=== PATIENT | male | born 2000 | race Caucasian/White ===

== ENCOUNTER 2020-10-29 12:44 | Emergency (ER) | payer OTHER ==
[~2020-10-29] VITALS: Ht 167.6 cm; Wt 79.4 kg
[2020-10-29 12:45] VITALS: BP 157/96
[2020-10-29] MEDS ORDERED: MEDR4PAK PO (12:52)
[2020-10-29] MEDS ORDERED: IBUP-1022 PO (13:35)
[2020-10-29] MEDS ORDERED: SOMA350T PO (13:35)
== END 2020-10-29 13:44 | disposition home or self-care (01) ==
LOC: M ED 12:44
DX: M54.5 Low back pain (principal)